=== PATIENT | male | born 1980 | race Caucasian/White ===

== ENCOUNTER 2018-12-26 22:47 | Emergency (ER) | payer OTHER, SELFPAY | END 2018-12-26 23:21 | disposition home or self-care (01) | LOC: BURERS 22:47 | DX: S00.83XA Contusion of other part of head, initial encounter (principal); F17.210 Nicotine dependence, cigarettes, uncomplicated; Y04.0XXA Assault by unarmed brawl or fight, initial encounter | CPT/HCPCS: 99281 ==

== ENCOUNTER 2019-01-27 02:03 | Emergency (ER) | payer OTHER ==
[2019-01-27] MEDS ORDERED: diphenhydrAMINE 25 MG CAP ONE (02:14)
[2019-01-27] MEDS ORDERED: predniSONE 20 MG TAB ONE (02:14)
[2019-01-27] MEDS ORDERED: Famotidine 20 MG TAB ONE (02:15)
== END 2019-01-27 02:20 | disposition home or self-care (01) ==
LOC: BURERS 02:03
DX: R21 Rash and other nonspecific skin eruption (principal); F17.210 Nicotine dependence, cigarettes, uncomplicated
CPT/HCPCS: 99282; J7512; Q0163

== ENCOUNTER 2020-04-23 06:00 | Emergency (ER) | payer BC, OTHER ==
[2020-04-23 17:18] LABS: SARS-CoV-2 MS2 Positive; SARS-CoV-2 N Gene Negative; SARS-CoV-2 S Gene Negative; SARS-CoV-2 by NAA Not Detected (NotDetected); SARS-CoV-2 orf1ab Negative
== END 2020-04-23 06:49 | disposition home or self-care (01) ==
LOC: BURERS 06:00
DX: A08.4 Viral intestinal infection, unspecified (principal); Z20.828 Contact with and (suspected) exposure to other viral communicable diseases; F17.210 Nicotine dependence, cigarettes, uncomplicated
CPT/HCPCS: 87635; 99284; U0003